=== PATIENT | male | born 1945 | race Caucasian/White ===

== ENCOUNTER 2016-12-23 09:18 | Outpatient (CLI) | payer MEDICARE, BC | END 2016-12-23 09:19 | disposition home or self-care (01) | DX: I10 Essential (primary) hypertension (principal) ==

== ENCOUNTER 2017-04-13 08:05 | Outpatient (CLI) | payer MEDICARE, BC ==
--- NOTE | 2017-04-14 14:02 | Ultrasound Report ---
CAROTID DUPLEX: 04/13/2017 CLINICAL INDICATION: Left facial numbness. TECHNIQUE: Real-time sonographic vascular imaging was performed by the gps navigation installer through the carotid arteries utilizing both color-flow and Doppler spectral analysis. Multiple franchise sales representative static images were saved for review. Vessel PSV cm/sec 2D Plaque Estimate % ICA/CCA PSV EDV cm/sec % Stenosis RCCA Prox 64 -- RCCA Dist 58 19 RECA 56 -- RT BULB 29 -- 0.50 11 ARCADIO Prox 46 -- 0.79 17 ARCADIO Mid 57 -- 0.98 26 ARCADIO Dist 41 -- 0.71 14 RVA 25 RVA flow direction: Antegrade. Vessel PSV cm/sec 2D Plaque Estimate % ICA/CCA PSV EDV cm/sec % Stenosis LCCA Prox 77 -- LCCA Dist 58 18 LECA 59 -- LFT BULB 42 -- 0.72 14 LICA Prox 45 -- 0.78 17 LICA Mid 54 -- 0.93 24 LICA Dist 61 -- 1.05 26 LVA 46 LVA flow direction: Antegrade. Velocity criteria are extrapolated from diameter data as defined by the Society of Radiologists in Ultrasound Consensus Conference Radiology 2003; 229; 340-346. Degree of Stenosis % ICA PSV cm/sec Plaque Estimate % ICA/CCA RSV Ratio ICA EDV cm/sec Normal < 125 None < 2.0 < 40 <50 < 125 < 50 < 2.0 < 40 50-69 125 - 130 >/= 50 2.0 - 4.0 40 - 100 >/= 70 but less than near occlusion > 230 >/= 50 > 4.0 > 100 Near occlusion High, low, or undetectable Visible lumen Variable Variable Total occlusion Undetectable No detectable lumen Not applicable Not applicable FINDINGS: RIGHT: There is minimal plaquing in the right carotid bifurcation, without evidence of a focal hemodynamically significant carotid stenosis. LEFT: There is minimal plaquing in the left carotid bifurcation, without evidence of a focal hemodynamically significant carotid stenosis. The vertebral arteries demonstrate antegrade flow bilaterally. IMPRESSION: NO EVIDENCE OF A FOCAL HEMODYNAMICALLY SIGNIFICANT CAROTID STENOSIS. MTDD
== END 2017-04-13 08:06 | disposition home or self-care (01) ==
LOC: DI 08:05
PROVIDERS: ATTEND Internal Medicine
DX: Z95.2 Presence of prosthetic heart valve (principal); I51.7 Cardiomegaly
CPT/HCPCS: 93306; 93880

== ENCOUNTER 2017-08-20 15:39 | Outpatient (CLI) | payer MEDICARE, BC | END 2017-08-20 15:40 | disposition critical access hospital (66) | LOC: EMS 15:39 | PROVIDERS: ATTEND Surgery | DX: S06.9X9A Unspecified intracranial injury with loss of consciousness of unspecified duration, initial encounter (principal); R41.82 Altered mental status, unspecified; W17.89XA Other fall from one level to another, initial encounter; Y93.H9 Activity, other involving exterior property and land maintenance, building and construction; Y92.008 Other place in unspecified non-institutional (private) residence as the place of occurrence of the external cause | CPT/HCPCS: A0425; A0427 ==

== ENCOUNTER 2017-08-20 15:52 | Emergency (ER) | payer MEDICARE, BC ==
[2017-08-20] MEDS ORDERED: SODIUM CHLORIDE 0.9% 1,000 ML IV ONE (16:05)
[2017-08-20] MEDS ORDERED: ceFAZolin 2 GM/50 ML 50 ML IV ONE ×2 (16:05→16:20)
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
[2017-08-20] MEDS ORDERED: IOPAMIDOL-300 100 ML VIAL ONE (16:15)
[2017-08-20 16:17] LABS: BASOPHILS # (AUTO) 0.1 10^3/uL (0.0-0.1); BASOPHILS % (AUTO) 0.9 %; EOSINOPHILS # (AUTO) 0.2 10^3/uL (0.0-0.7); EOSINOPHILS % (AUTO) 1.7 %; HCT - HEMATOCRIT 47.5 % (42.0-52.0); LYMPHOCYTES # (AUTO) 1.5 10^3/uL (1.5-3.5); LYMPHOCYTES % (AUTO) 14.3 %; MEAN CORPUSCULAR HEMOGLOBIN 31.3 pg (27.0-31.0); MEAN CORPUSCULAR HGB CONC 33.8 g/dL (32.0-36.0); MEAN CORPUSCULAR VOLUME 92.5 fL (80.0-94.0); MEAN PLATELET VOLUME 8.5 fL (7.4-11.4); MONOCYTES # (AUTO) 0.9 10^3/uL (0.0-1.0); MONOCYTES % (AUTO) 8.5 %; NEUTROPHILS # (AUTO) 7.9 10^3/uL (1.5-6.6); NEUTROPHILS % (AUTO) 74.6 %; NUCLEATED RED BLOOD CELLS AUTO 0.1 /100WBC; RED BLOOD COUNT 5.13 10^6/uL (4.70-6.10); RED CELL DISTRIBUTION WIDTH 14.2 % (12.0-15.0); UNCORRECTED WHITE BLOOD COUNT 10.5 x10^3/uL; WHITE BLOOD COUNT 10.5 x10^3/uL (4.8-10.8)
[2017-08-20] MEDS ORDERED: SODIUM CHLORIDE FLUSH 0.9% 10 ML SYRINGE IVP ONE (16:20)
[2017-08-20 16:30] LABS: ALBUMIN/GLOBULIN RATIO 1.6 (1.0-2.2); BILIRUBIN,TOTAL 1.6 mg/dL (0.2-1.0); CALCIUM 9.2 mg/dL (8.5-10.3); CREATININE 1.2 mg/dL (0.6-1.2); POTASSIUM 4.8 mmol/L (3.5-5.0); TOTAL PROTEIN 7.5 g/dL (6.7-8.2)
[2017-08-20] MEDS ORDERED: IOPAMIDOL-300 100 ML VIAL IVP ONE (16:40)
[2017-08-20 16:48] LABS: PT - PROTHROMBIN TIME 11.2 secs (9.9-12.6)
[2017-08-20] MEDS ORDERED: BUFFERED LIDOCAINE 10 ML SYRINGE ONE (16:51)
--- NOTE | 2017-08-20 17:08 | CT Preliminary Report ---
Exam: CT Head W/O IMPRESSION: 1. Soft tissue laceration along the left forehead with no underlying fracture identified. 2. The left globe appears intact. 3. No acute intracranial abnormality. [facility] SITE ID: [id number]
--- NOTE | 2017-08-20 17:10 | CT Report ---
EXAM: CT HEAD EXAM DATE: 08/20/2017 04:30 PM. CLINICAL HISTORY: Left forehead laceration. COMPARISON: None. TECHNIQUE: Multiaxial CT images were obtained from the foramen magnum to the vertex. IV contrast: Non e. Reformats: Coronal. In accordance with CT protocol optimization, one or more of the following dose reduction techniques w ere utilized for this exam: automated exposure control, adjustment of mA and/or KV based on patient s ize, or use of iterative reconstructive technique. FINDINGS: Parenchyma: No intraparenchymal hemorrhage. No evidence of mass, midline shift, or CT findings of inf arction. Clayton-white differentiation is distinct. Extraaxial Spaces: Normal for age. No subdural or epidural collections identified. Ventricles: Normal in size and position. Sinuses: Imaged paranasal sinuses, orbits, and mastoids show no significant abnormality. Bones: Question right nasal bone fracture. Other: Large laceration along the left forehead with no underlying bony fracture. The globe appears i ntact. IMPRESSION: 1. Soft tissue laceration along the left forehead with no underlying fracture identified. 2. The left globe appears intact. 3. No acute intracranial abnormality. [facility] Referring Provider Line: [phone] SITE ID: [id number]
--- NOTE | 2017-08-20 17:11 | CT Preliminary Report ---
Exam: CT Cervical Spine W/O IMPRESSION: 1. No acute cervical spine fracture or listhesis. 2. Multilevel degenerative changes, as above. [facility] SITE ID: [id number]
--- NOTE | 2017-08-20 17:13 | CT Report ---
EXAM: CT CERVICAL SPINE WITHOUT CONTRAST DATE: 08/20/2017 04:37 PM HISTORY: Fall from height, head injury. COMPARISONS: None. TECHNIQUE: Thin-section axial images were acquired of the cervical spine without contrast. Post-proce ssing: Coronal and sagittal reformats. Other: None. In accordance with CT protocol optimization, one or more of the following dose reduction techniques w ere utilized for this exam: automated exposure control, adjustment of mA and/or KV based on patient s ize, or use of iterative reconstructive technique. FINDINGS: Alignment: Normal. No scoliosis or spondylolisthesis. Bones: No fracture or bone lesion. Interspace Levels/Facets: C1-C2: Degenerative changes. C2-C3: Unremarkable. C3-C4: Uncal hypertrophy and facet arthrosis with mild bilateral neural foraminal narrowing. C4-C5: Unremarkable. C5-C6: Severe degenerative disk disease with uncal hypertrophy and moderate right neural foraminal na rrowing. C6-C7: Severe degenerative disk disease. C7-T1: Unremarkable. Musculature: Normal. No fatty atrophy. Other: The paravertebral and prevertebral soft tissues are normal. The lung apices are clear. IMPRESSION: 1. No acute cervical spine fracture or listhesis. 2. Multilevel degenerative changes, as above. [facility] Referring Provider Line: [phone] SITE ID: [id number]
--- NOTE | 2017-08-20 17:16 | CT Preliminary Report ---
Exam: CT Abdomen/Pelvis W/ IMPRESSION: 1. Axial, coronal and sagittal reconstructed images demonstrate no traumatic injury to the of the low er thoracic and lumbar spine. No pelvic fracture. 2. No solid organ injury in the abdomen or pelvis. 3. No evidence of bowel injury. [facility] SITE ID: [id number]
--- NOTE | 2017-08-20 17:19 | CT Report ---
EXAM: CT ABDOMEN AND PELVIS EXAM DATE: 08/20/2017 04:51 PM. CLINICAL HISTORY: Fall from height, head injury, IV only,. COMPARISONS: None. TECHNIQUE: Routine helical CT imaging was performed through the abdomen and pelvis. IV contrast: Amt/ type. Enteric contrast: No. Reconstructions: Coronal and sagittal. In accordance with CT protocol optimization, one or more of the following dose reduction techniques w ere utilized for this exam: automated exposure control, adjustment of mA and/or KV based on patient s ize, or use of iterative reconstructive technique. FINDINGS: Lung Bases: Unremarkable. Liver: Normal. No masses. Gallbladder/Bile Ducts: Unremarkable. Spleen: Normal. Pancreas: Normal. Adrenal Glands: Normal. Kidneys: Normal. No masses or hydronephrosis. Peritoneal Cavity/Bowel: Normal. No free fluid, free air or adenopathy. No masses or acute inflammato ry process. The appendix is well visualized and normal. Pelvic Organs: Normal. The bladder and visualized pelvic organs are within normal limits. Vasculature: Atherosclerotic disease of the abdominal aorta. Bones: Healed fractures of the left eighth, ninth, 10th and 11th ribs. Other: None. IMPRESSION: 1. Axial, coronal and sagittal reconstructed images demonstrate no traumatic injury to the of the low er thoracic and lumbar spine. No pelvic fracture. 2. No solid organ injury in the abdomen or pelvis. 3. No evidence of bowel injury. [facility] Referring Provider Line: [phone] SITE ID: [id number]
--- NOTE | 2017-08-20 17:26 | CT Report ---
EXAM: CT CHEST EXAM DATE: 08/20/2017 04:51 PM. CLINICAL HISTORY: Fall from height, head injury. Pain left side of body. COMPARISONS: Abdominal CT dated 08/20/2017. TECHNIQUE: Routine helical CT imaging was performed through the chest. IV contrast: None. Reconstruct ions: Coronal and sagittal. In accordance with CT protocol optimization, one or more of the following dose reduction techniques w ere utilized for this exam: automated exposure control, adjustment of mA and/or KV based on patient s ize, or use of iterative reconstructive technique. FINDINGS: Lungs/Pleura: There is a 4 mm pulmonary nodule in the right lung base (series 3, image 51). No focal consolidation, pleural effusion or pneumothorax. Mediastinum: The proximal ascending thoracic aorta is enlarged measuring up to 4.7 cm from the 2:00 t o 8 o'clock position on the axial plane at the level of the main pulmonary artery. No aortic dissecti on. No evidence of traumatic aortic injury. Bones: Old healed fractures of the left second, third, fourth, fifth, sixth, seventh, eighth, ninth, 10th and 11th ribs. Many of these fractures are markedly displaced. No acute rib fractures identified . Visualized Abdomen: Unremarkable. Other: Replaced aortic valve. Status post median sternotomy and CABG. IMPRESSION: 1. No traumatic aortic injury. 2. 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 3. No pneumothorax, focal consolidation or pleural effusion. 4. Axial, coronal and sagittal reconstructed images demonstrate no traumatic injury to the thoracic s pine. 5. Multiple old healed and old displaced rib fractures on the left. No acute fractures identified. [facility] Referring Provider Line: [phone] SITE ID: [id number]
--- NOTE | 2017-08-20 17:40 | XRAY Preliminary Report ---
Exam: XR Hip w/Pelvis 2-3V RT IMPRESSION: 1. Normal pelvis and hip radiography. 2. Lumbar spine degenerative disease. [facility] SITE ID: [id number]
--- NOTE | 2017-08-20 17:43 | XRAY Report ---
EXAM: RIGHT HIP AND PELVIS RADIOGRAPHY EXAM DATE: 08/20/2017 05:04 PM. HISTORY: Fall from height, hip inj. COMPARISONS: None. TECHNIQUE: 1 view of the pelvis and 1 view of the hip. FINDINGS: Bones: Normal. No fracture or bone lesion. Joints: The bilateral hip, pubis symphysis, and sacroiliac joints are preserved. Lower lumbar spine d egenerative disease. Soft Tissues: Normal. No soft tissue swelling. IMPRESSION: 1. Normal pelvis and hip radiography. 2. Lumbar spine degenerative disease. [facility] Referring Provider Line: [phone] SITE ID: [id number]
[2017-08-20] MEDS ORDERED: BACITRACIN OINT TOP ONE (18:09)
[2017-08-20 18:22] VITALS: BP 147/93
== END 2017-08-20 18:18 | disposition home or self-care (01) ==
LOC: EDUNIT# → ED 15:52
DX: S06.0X1A Concussion with loss of consciousness of 30 minutes or less, initial encounter (principal); S01.81XA Laceration without foreign body of other part of head, initial encounter; S19.9XXA Unspecified injury of neck, initial encounter; W11.XXXA Fall on and from ladder, initial encounter; Y93.H9 Activity, other involving exterior property and land maintenance, building and construction; Y92.017 Garden or yard in single-family (private) house as the place of occurrence of the external cause; Z95.2 Presence of prosthetic heart valve; R03.0 Elevated blood-pressure reading, without diagnosis of hypertension
CPT/HCPCS: 12032; 36415; 70450; 71260; 72125; 73502; 74177; 80053; 83690; 85025; 85610; 86850; 86900; 86901; 96374; 99283; 99284; A9270; J0690; Q9967

== ENCOUNTER 2017-09-07 09:36 | Outpatient (CLI) | payer MEDICARE, BC ==
--- NOTE | 2017-09-07 12:13 | MRI Report ---
EXAM: MRI BRAIN WITHOUT CONTRAST EXAM DATE: 09/07/2017 10:29 AM. CLINICAL HISTORY: Right leg weakness. Recent head trauma. Concussion syndrome. COMPARISON: No prior MRI. Brain CT correlation 08/20/2017. TECHNIQUE: Multiplanar, multisequence T1-weighted and fluid-sensitive MR sequences of the brain were performed. Sequences optimized for routine evaluation. Other: None. IV Contrast: None. FINDINGS: Brain Volume: Normal for age. Parenchyma/Dura: There are 6 or 7 tiny foci of fluid signal in the cerebellum that are consistent wit h very small old ischemic infarcts. Small chronic-appearing bilateral thalamic lacunar infarcts. No evidence for acute or recent cortical ischemic infarct. There is a cluster of small foci of abnormal white matter T2 hyperintensity with mild diffusion hyper intensity and also accompanying multinodular abnormal hypointensity on the gradient echo sequence in the left frontal lobe. These are nonspecific findings but can be associated with traumatic brain inju ry and suggest the possibility of axonal injury with microhemorrhage and developing posttraumatic gli osis or mild residual traumatic edema. Tiny single focus of deep white matter gradient echo hypointensity in the right frontal lobe. Single right lateral temporal lobe focus of susceptibility artifact on the gradient echo sequence. No midline shift or abnormal subdural fluid collection. Cerebral white matter appearance otherwise is within normal limits for age. A minimal amorphous periv entricular T2 hyperintense signal change is likely from chronic microangiopathy. Ventricles/Cisterns: No hydrocephalus. Sinuses: Minimal paranasal sinus mucosal thickening. Right maxillary retention cyst. Bones: No focal pathologic appearing marrow signal changes. Other: Loss of subcutaneous fat signal in the region of the left forehead where swelling and hematoma were seen previously on the prior CT. IMPRESSION: 1. Multiple foci of cerebral parenchymal signal abnormality including with punctate foci of gradient echo hypointensity, these are nonspecific findings but consistent with traumatic brain injury, most n otable in the region of the anterior left frontal lobe deep white matter. 2. 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 Referring Provider Line: [phone] SITE ID: [id number]
== END 2017-09-07 09:37 | disposition home or self-care (01) ==
LOC: DI 09:36
PROVIDERS: ATTEND Physician Assistant Medical
DX: R90.89 Other abnormal findings on diagnostic imaging of central nervous system (principal); Z86.73 Personal history of transient ischemic attack (TIA), and cerebral infarction without residual deficits
CPT/HCPCS: 70551

== ENCOUNTER 2018-06-05 09:35 | Outpatient (CLI) | payer MEDICARE, BC ==
[2018-06-05 17:53] LABS: BASOPHILS # (AUTO) 0.1 10^3/uL (0.0-0.1); EOSINOPHILS # (AUTO) 0.2 10^3/uL (0.0-0.7); EOSINOPHILS % (AUTO) 2.9 %; HGB - HEMOGLOBIN 15.4 g/dL (14.0-18.0); LYMPHOCYTES # (AUTO) 1.6 10^3/uL (1.5-3.5); LYMPHOCYTES % (AUTO) 30.6 %; MEAN CORPUSCULAR HGB CONC 33.6 g/dL (32.0-36.0); MEAN CORPUSCULAR VOLUME 95.1 fL (80.0-94.0); MEAN PLATELET VOLUME 8.6 fL (7.4-11.4); MONOCYTES # (AUTO) 0.6 10^3/uL (0.0-1.0); MONOCYTES % (AUTO) 11.1 %; NEUTROPHILS # (AUTO) 2.9 10^3/uL (1.5-6.6); NEUTROPHILS % (AUTO) 54.4 %; PLT - PLATELET COUNT 138 10^3/uL (130-450); RED BLOOD COUNT 4.81 10^6/uL (4.70-6.10); RED CELL DISTRIBUTION WIDTH 13.8 % (12.0-15.0); WHITE BLOOD COUNT 5.2 x10^3/uL (4.8-10.8)
[2018-06-05 18:11] LABS: ALBUMIN 4.4 g/dL (3.2-5.5); ALBUMIN/GLOBULIN RATIO 1.8 (1.0-2.2); ALKALINE PHOSPHATASE 59 IU/L (42-121); ALT ALANINE AMINOTRANSFERASE 24 IU/L (10-60); AST ASPARTATE AMINOTRANSFERASE 20 IU/L (10-42); BILIRUBIN,TOTAL 1.5 mg/dL (0.2-1.0); BUN - BLOOD UREA NITROGEN 18 mg/dL (6-20); CALCIUM 8.8 mg/dL (8.5-10.3); CARBON DIOXIDE - CO2 27 mmol/L (21-32); CHLORIDE 104 mmol/L (101-111); CHOL/HDL RATIO 2.6 (<5.0); CHOLESTEROL 169 mg/dL; GFR - MDRD 73 (>89); GLUCOSE 110 mg/dL (70-100); HDL CHOLESTEROL 66 mg/dL; LDL CHOLESTEROL,CALCULATED 94 mg/dL; LDL/HDL RATIO 1.4 (<3.6); SODIUM 137 mmol/L (135-145); TOTAL PROTEIN 6.9 g/dL (6.7-8.2); VLDL CHOLESTEROL 9 mg/dL
== END 2018-06-05 09:36 | disposition home or self-care (01) ==
LOC: LAB.F 09:35
PROVIDERS: ATTEND Physician Assistant Medical
DX: Z12.11 Encounter for screening for malignant neoplasm of colon (principal); E78.5 Hyperlipidemia, unspecified; R53.83 Other fatigue; F32.9 Major depressive disorder, single episode, unspecified; Z79.899 Other long term (current) drug therapy
CPT/HCPCS: 36415; 80053; 80061; 83721; 84443; 85025

== ENCOUNTER 2019-10-01 09:18 | Outpatient (CLI) | payer MEDICARE, BC ==
[2019-10-01 10:33] LABS: ALBUMIN 4.3 g/dL (3.2-5.5); ALBUMIN/GLOBULIN RATIO 1.4 (1.0-2.2); ALKALINE PHOSPHATASE 67 IU/L (42-121); ALT ALANINE AMINOTRANSFERASE 21 IU/L (10-60); AST ASPARTATE AMINOTRANSFERASE 16 IU/L (10-42); BILIRUBIN,TOTAL 1.1 mg/dL (0.2-1.0); BUN - BLOOD UREA NITROGEN 18 mg/dL (6-20); CARBON DIOXIDE - CO2 28 mmol/L (21-32); CHLORIDE 99 mmol/L (101-111); CHOLESTEROL 155 mg/dL; CREATININE 1.1 mg/dL (0.6-1.2); GFR - MDRD 65 (>89); GLUCOSE 105 mg/dL (70-100); HDL CHOLESTEROL 52 mg/dL; SODIUM 135 mmol/L (135-145); TOTAL PROTEIN 7.4 g/dL (6.7-8.2)
== END 2019-10-01 09:19 | disposition home or self-care (01) ==
LOC: LAB 09:18
PROVIDERS: ATTEND Internal Medicine
DX: I25.119 Atherosclerotic heart disease of native coronary artery with unspecified angina pectoris (principal); E78.5 Hyperlipidemia, unspecified
CPT/HCPCS: 36415; 80053; 80061; 83721

== ENCOUNTER 2020-01-07 15:50 | Outpatient (CLI) | payer MEDICARE, BC | END 2020-01-07 23:59 | disposition home or self-care (01) | LOC: LAB.R 15:50 | PROVIDERS: ATTEND Physician Assistant Medical | DX: N39.0 Urinary tract infection, site not specified (principal) | CPT/HCPCS: 87086 ==

== ENCOUNTER 2020-02-01 10:08 | Outpatient (CLI) | payer MEDICARE, BC ==
[2020-02-01 10:49] LABS: ALBUMIN 4.4 g/dL (3.2-5.5); CALCIUM 9.4 mg/dL (8.5-10.3); CREATININE 1.1 mg/dL (0.6-1.2); PHOSPHORUS 3.9 mg/dL (2.5-4.6)
== END 2020-02-01 10:09 | disposition home or self-care (01) ==
LOC: LAB 10:08
PROVIDERS: ATTEND Physician Assistant Medical
DX: N39.0 Urinary tract infection, site not specified (principal); N40.1 Benign prostatic hyperplasia with lower urinary tract symptoms
CPT/HCPCS: 36415; 80069

== ENCOUNTER 2020-11-04 08:00 | Outpatient (CLI) | payer MEDICARE, BC | END 2020-11-04 23:59 | disposition home or self-care (01) | LOC: LAB.R 08:00 | PROVIDERS: ATTEND Internal Medicine | DX: Z12.11 Encounter for screening for malignant neoplasm of colon (principal) | CPT/HCPCS: 82274 ==

== ENCOUNTER 2020-11-14 08:00 | Outpatient (CLI) | payer MEDICARE, BC | END 2020-11-14 23:59 | disposition home or self-care (01) | LOC: LAB.R 08:00 | PROVIDERS: ATTEND Internal Medicine | DX: R10.9 Unspecified abdominal pain (principal) | CPT/HCPCS: 81002 ==

== ENCOUNTER 2021-04-14 08:04 | Outpatient (CLI) | payer MEDICARE, BC ==
[2021-04-14 08:56] LABS: BASOPHILS # (AUTO) 0.1 10^3/uL (0.0-0.1); EOSINOPHILS # (AUTO) 0.2 10^3/uL (0.0-0.7); EOSINOPHILS % (AUTO) 3.4 %; HCT - HEMATOCRIT 45.8 % (42.0-52.0); HGB - HEMOGLOBIN 15.1 g/dL (14.0-18.0); LYMPHOCYTES # (AUTO) 1.3 10^3/uL (1.5-3.5); LYMPHOCYTES % (AUTO) 19.1 %; MEAN CORPUSCULAR VOLUME 90.9 fL (80.0-94.0); MEAN PLATELET VOLUME 9.7 fL (7.4-11.4); MONOCYTES # (AUTO) 0.7 10^3/uL (0.0-1.0); MONOCYTES % (AUTO) 10.3 %; NEUTROPHILS # (AUTO) 4.6 10^3/uL (1.5-6.6); NEUTROPHILS % (AUTO) 65.9 %; PLT - PLATELET COUNT 154 10^3/uL (130-450); RED BLOOD COUNT 5.04 10^6/uL (4.70-6.10)
[2021-04-14 09:14] LABS: ALBUMIN 4.1 g/dL (3.2-5.5); ALBUMIN/GLOBULIN RATIO 1.4 (1.0-2.2); ALKALINE PHOSPHATASE 59 IU/L (42-121); ALT ALANINE AMINOTRANSFERASE 20 IU/L (10-60); AST ASPARTATE AMINOTRANSFERASE 16 IU/L (10-42); BILIRUBIN,TOTAL 1.3 mg/dL (0.2-1.0); BUN - BLOOD UREA NITROGEN 17 mg/dL (6-20); CALCIUM 8.9 mg/dL (8.5-10.3); CARBON DIOXIDE - CO2 27 mmol/L (21-32); CHLORIDE 102 mmol/L (101-111); CHOL/HDL RATIO 3.1 (<5.0); CHOLESTEROL 165 mg/dL; CREATININE 1.1 mg/dL (0.6-1.2); GFR - MDRD 65 (>89); GLUCOSE 112 mg/dL (70-100); HDL CHOLESTEROL 54 mg/dL; LDL CHOLESTEROL,CALCULATED 102 mg/dL; LDL/HDL RATIO 1.9 (<3.6); POTASSIUM 4.8 mmol/L (3.5-5.0); SODIUM 136 mmol/L (135-145); TOTAL PROTEIN 7.1 g/dL (6.7-8.2); TRIGLYCERIDES 47 mg/dL; VLDL CHOLESTEROL 9 mg/dL
== END 2021-04-14 08:05 | disposition home or self-care (01) ==
LOC: LAB 08:04
PROVIDERS: ATTEND Internal Medicine
DX: I10 Essential (primary) hypertension (principal)
CPT/HCPCS: 36415; 80053; 80061; 83721; 85025

== ENCOUNTER 2021-04-16 17:20 | Outpatient (CLI) | payer MEDICARE, BC ==
--- NOTE | 2021-04-16 17:49 | XRAY Report ---
PROCEDURE: Knee 3 View LT INDICATIONS: LEFT KNEE PAIN ACUTE TECHNIQUE: 3 views of the left knee were acquired. COMPARISON: None. FINDINGS: Bones: No fractures or dislocations. There is mild joint space narrowing in the medial compartment. No suspicious bony lesions. Soft tissues: There is a large joint effusion. No suspicious soft tissue calcifications. IMPRESSION: 1. No fracture or dislocation. 2. Large joint effusion. Reviewed by: Benjamin Funes MD on 04/16/2021 5:48 PM PDT Approved by: Benjamin Funes MD on 04/16/2021 5:48 PM PDT Station ID: [id number]
== END 2021-04-16 23:59 | disposition home or self-care (01) ==
LOC: DI.S 17:20
PROVIDERS: ATTEND Physician Assistant Medical
DX: M25.462 Effusion, left knee (principal)

== ENCOUNTER 2021-04-27 19:45 | Outpatient (CLI) | payer MEDICARE, BC ==
[2021-04-27 16:02] LABS: BILIRUBIN,URINE NEGATIVE (NEGATIVE); GLUCOSE, URINE (UA) NEGATIVE (NEGATIVE); KETONES,URINE (UA) NEGATIVE (NEGATIVE); LEUKOCYTE ESTERASE, URINE MODERATE (NEGATIVE); NITRITE,URINE NEGATIVE (NEGATIVE); OCCULT BLOOD,URINE LARGE (NEGATIVE); PROTEIN,URINE 30 mg/dL (NEGATIVE); UROBILINOGEN,URINE 0.2 (NORMAL) E.U./dL (NORMAL)
[2021-04-27 16:16] LABS: BACTERIA,URINE None Seen /HPF (None Seen); CLARITY,URINE CLOUDY (CLEAR); SQUAMOUS EPITHELIAL CELL,UR RARE Squamous (<= Few); WBC,URINE >25 /HPF (0-3)
== END 2021-04-27 23:59 | disposition home or self-care (01) ==
LOC: LAB.S 19:45
PROVIDERS: ATTEND Physician Assistant Medical
DX: R31.9 Hematuria, unspecified (principal)
CPT/HCPCS: 81001; 87086; 87181

== ENCOUNTER 2021-04-29 15:48 | Outpatient (CLI) | payer MEDICARE, BC | END 2021-04-29 15:49 | disposition home or self-care (01) | LOC: LAB.S 15:48 | PROVIDERS: ATTEND Internal Medicine | DX: Z12.5 Encounter for screening for malignant neoplasm of prostate (principal) | CPT/HCPCS: 36415; G0103; 84153 ==

== ENCOUNTER 2021-05-11 15:00 | Outpatient (CLI) | payer MEDICARE, BC ==
[2021-05-11 20:21] LABS: BASOPHILS # (AUTO) 0.1 10^3/uL (0.0-0.1); BASOPHILS % (AUTO) 0.7 %; EOSINOPHILS # (AUTO) 0.2 10^3/uL (0.0-0.7); EOSINOPHILS % (AUTO) 2.1 %; HCT - HEMATOCRIT 44.7 % (42.0-52.0); HGB - HEMOGLOBIN 14.6 g/dL (14.0-18.0); LYMPHOCYTES # (AUTO) 1.4 10^3/uL (1.5-3.5); LYMPHOCYTES % (AUTO) 16.4 %; MEAN CORPUSCULAR HEMOGLOBIN 30.1 pg (27.0-31.0); MEAN CORPUSCULAR HGB CONC 32.7 g/dL (32.0-36.0); MEAN CORPUSCULAR VOLUME 92.2 fL (80.0-94.0); MEAN PLATELET VOLUME 10.4 fL (7.4-11.4); MONOCYTES # (AUTO) 0.7 10^3/uL (0.0-1.0); MONOCYTES % (AUTO) 7.9 %; NEUTROPHILS # (AUTO) 6.3 10^3/uL (1.5-6.6); NEUTROPHILS % (AUTO) 72.6 %; PLT - PLATELET COUNT 221 10^3/uL (130-450); RED BLOOD COUNT 4.85 10^6/uL (4.70-6.10); RED CELL DISTRIBUTION WIDTH 13.1 % (12.0-15.0); WHITE BLOOD COUNT 8.7 x10^3/uL (4.8-10.8)
[2021-05-11 20:23] LABS: BILIRUBIN,URINE NEGATIVE (NEGATIVE); GLUCOSE, URINE (UA) NEGATIVE (NEGATIVE); KETONES,URINE (UA) NEGATIVE (NEGATIVE); LEUKOCYTE ESTERASE, URINE NEGATIVE (NEGATIVE); NITRITE,URINE NEGATIVE (NEGATIVE); OCCULT BLOOD,URINE NEGATIVE (NEGATIVE); PROTEIN,URINE NEGATIVE (NEGATIVE); UROBILINOGEN,URINE 0.2 (NORMAL) E.U./dL (NORMAL)
[2021-05-11 20:36] LABS: CLARITY,URINE CLEAR (CLEAR); RBC,URINE None Seen /HPF (0-5)
[2021-05-11 20:37] LABS: BACTERIA,URINE None Seen /HPF (None Seen); SQUAMOUS EPITHELIAL CELL,UR NONE SEEN (<= Few)
== END 2021-05-11 15:01 | disposition home or self-care (01) ==
LOC: LAB.S 15:00
PROVIDERS: ATTEND Internal Medicine
DX: R31.9 Hematuria, unspecified (principal)
CPT/HCPCS: 36415; 81001; 85025; 87086

== ENCOUNTER 2021-06-02 14:03 | Outpatient (CLI) | payer MEDICARE, BC ==
[2021-06-02 17:24] LABS: THYROID STIMULATING HORMONE 0.82 uIU/mL (0.34-5.60)
== END 2021-06-02 14:04 | disposition home or self-care (01) ==
LOC: LAB.S 14:03
PROVIDERS: ATTEND Internal Medicine
DX: R53.83 Other fatigue (principal)
CPT/HCPCS: 36415; 84443

== ENCOUNTER 2021-06-16 10:23 | Outpatient (CLI) | payer MEDICARE, BC ==
[2021-06-16 15:11] LABS: HCT - HEMATOCRIT 46.5 % (42.0-52.0); HGB - HEMOGLOBIN 14.9 g/dL (14.0-18.0); MEAN CORPUSCULAR HEMOGLOBIN 29.9 pg (27.0-31.0); MEAN CORPUSCULAR VOLUME 93.2 fL (80.0-94.0); MEAN PLATELET VOLUME 10.6 fL (7.4-11.4); RED BLOOD COUNT 4.99 10^6/uL (4.70-6.10); RED CELL DISTRIBUTION WIDTH 13.7 % (12.0-15.0); WHITE BLOOD COUNT 6.7 x10^3/uL (4.8-10.8)
[2021-06-16 16:10] LABS: URIC ACID 7.4 mg/dL (2.6-7.2)
[2021-06-16 16:11] LABS: CRP - C-REACTIVE PROTEIN < 1.0 mg/dL (0-1.0)
[2021-06-16 17:42] LABS: RHEUMATOID FACTOR NEGATIVE (Negative)
[2021-06-18 16:46] LABS: DNA (DS) ANTIBODY 6 IU/mL
[2021-06-18 18:52] LABS: CYCLIC CITRULL PEPTIDE CCP IGG <16 UNITS
[2021-06-19 15:46] LABS: ANA SCREEN NEGATIVE (NEGATIVE)
== END 2021-06-16 10:24 | disposition home or self-care (01) ==
LOC: LAB.S 10:23
PROVIDERS: ATTEND Internal Medicine
DX: M25.50 Pain in unspecified joint (principal)
CPT/HCPCS: 36415; 84550; 85027; 85651; 86038; 86140; 86200; 86225; 86430

== ENCOUNTER 2021-06-25 08:00 | Outpatient (CLI) | payer MEDICARE, BC | END 2021-06-25 23:59 | disposition home or self-care (01) | LOC: LAB.S 08:00 | PROVIDERS: ATTEND Emergency Medicine | DX: R30.0 Dysuria (principal); N41.0 Acute prostatitis | CPT/HCPCS: 87086 ==

== ENCOUNTER 2021-08-19 07:13 | Outpatient (CLI) | payer MEDICARE, BC ==
[2021-08-19 14:29] LABS: ALBUMIN/GLOBULIN RATIO 1.3 (1.0-2.2); BILIRUBIN,TOTAL 0.9 mg/dL (0.2-1.0); URIC ACID 6.8 mg/dL (2.6-7.2)
== END 2021-08-19 07:14 | disposition home or self-care (01) ==
LOC: LAB.S 07:13
PROVIDERS: ATTEND Internal Medicine
DX: M25.50 Pain in unspecified joint (principal); M10.9 Gout, unspecified; I10 Essential (primary) hypertension
CPT/HCPCS: 36415; 80053; 84550

== ENCOUNTER 2021-12-02 12:08 | Outpatient (CLI) | payer MEDICARE, BC ==
[2021-12-02 12:41] LABS: BASOPHILS # (AUTO) 0.1 10^3/uL (0.0-0.1); BASOPHILS % (AUTO) 1.1 %; EOSINOPHILS # (AUTO) 0.4 10^3/uL (0.0-0.7); HCT - HEMATOCRIT 46.6 % (42.0-52.0); HGB - HEMOGLOBIN 15.3 g/dL (14.0-18.0); LYMPHOCYTES % (AUTO) 14.8 %; MEAN CORPUSCULAR HEMOGLOBIN 29.9 pg (27.0-31.0); MEAN CORPUSCULAR HGB CONC 32.8 g/dL (32.0-36.0); MEAN CORPUSCULAR VOLUME 91.2 fL (80.0-94.0); MEAN PLATELET VOLUME 10.1 fL (7.4-11.4); MONOCYTES # (AUTO) 0.7 10^3/uL (0.0-1.0); MONOCYTES % (AUTO) 9.7 %; NEUTROPHILS # (AUTO) 4.9 10^3/uL (1.5-6.6); NEUTROPHILS % (AUTO) 69.1 %; PLT - PLATELET COUNT 157 10^3/uL (130-450); RED BLOOD COUNT 5.11 10^6/uL (4.70-6.10); RED CELL DISTRIBUTION WIDTH 12.7 % (12.0-15.0)
[2021-12-02 12:55] LABS: ALBUMIN 4.3 g/dL (3.2-5.5); ALBUMIN/GLOBULIN RATIO 1.4 (1.0-2.2); BILIRUBIN,TOTAL 0.7 mg/dL (0.2-1.0); CALCIUM 9.3 mg/dL (8.5-10.3); CREATININE 1.2 mg/dL (0.6-1.2); MAGNESIUM 2.1 mg/dL (1.7-2.8); TOTAL PROTEIN 7.4 g/dL (6.7-8.2)
== END 2021-12-02 12:09 | disposition home or self-care (01) ==
LOC: LAB 12:08
PROVIDERS: ATTEND Urology
DX: N32.89 Other specified disorders of bladder (principal); C64.1 Malignant neoplasm of right kidney, except renal pelvis
CPT/HCPCS: 36415; 80048; 80053; 83735; 84443; 85025

== ENCOUNTER 2022-02-26 10:56 | Outpatient (CLI) | payer MEDICARE, BC ==
[2022-02-26 12:33] LABS: HCT - HEMATOCRIT 45.3 % (42.0-52.0); MEAN CORPUSCULAR HEMOGLOBIN 29.5 pg (27.0-31.0); MEAN CORPUSCULAR HGB CONC 33.1 g/dL (32.0-36.0); RED BLOOD COUNT 5.09 10^6/uL (4.70-6.10); RED CELL DISTRIBUTION WIDTH 13.2 % (12.0-15.0); WHITE BLOOD COUNT 5.6 x10^3/uL (4.8-10.8)
[2022-02-26 12:41] LABS: CALCIUM 9.1 mg/dL (8.5-10.3); CREATININE 1.1 mg/dL (0.6-1.2); POTASSIUM 4.3 mmol/L (3.5-5.0)
== END 2022-02-26 10:57 | disposition home or self-care (01) ==
LOC: LAB.S 10:56 → LAB 10:57
PROVIDERS: ATTEND Urology
DX: N32.89 Other specified disorders of bladder (principal)
CPT/HCPCS: 36415; 80048; 85027; 93005

== ENCOUNTER 2023-09-13 09:49 | Outpatient (CLI) | payer MEDICARE, BC ==
[2023-09-13 16:37] LABS: CHOL/HDL RATIO 2.3 (<5.0); CHOLESTEROL 167 mg/dL; HDL CHOLESTEROL 73 mg/dL; LDL CHOLESTEROL,CALCULATED 83 mg/dL; LDL/HDL RATIO 1.1 (<3.6); TRIGLYCERIDES 57 mg/dL (48-352); VLDL CHOLESTEROL 11 mg/dL
== END 2023-09-13 09:50 | disposition home or self-care (01) ==
LOC: LAB.S 09:49
PROVIDERS: ATTEND Internal Medicine
DX: I25.119 Atherosclerotic heart disease of native coronary artery with unspecified angina pectoris (principal); E78.5 Hyperlipidemia, unspecified
CPT/HCPCS: 36415; 80061; 83721

== ENCOUNTER 2023-09-23 10:53 | Outpatient (CLI) | payer MEDICARE, BC ==
[2023-09-23 15:36] LABS: HCT - HEMATOCRIT 46.7 % (42.0-52.0); HGB - HEMOGLOBIN 15.3 g/dL (14.0-18.0); MEAN CORPUSCULAR HEMOGLOBIN 30.3 pg (27.0-31.0); MEAN CORPUSCULAR HGB CONC 32.8 g/dL (32.0-36.0); MEAN CORPUSCULAR VOLUME 92.5 fL (80.0-94.0); MEAN PLATELET VOLUME 10.9 fL (7.4-11.4); RED BLOOD COUNT 5.05 10^6/uL (4.70-6.10); RED CELL DISTRIBUTION WIDTH 13.1 % (12.0-15.0); WHITE BLOOD COUNT 5.7 x10^3/uL (4.8-10.8)
[2023-09-23 16:09] LABS: THYROID STIMULATING HORMONE 0.97 uIU/mL (0.34-5.60)
[2023-09-23 16:40] LABS: ALBUMIN 4.4 g/dL (3.2-5.5); ALBUMIN/GLOBULIN RATIO 1.7 (1.0-2.2); BILIRUBIN,TOTAL 1.1 mg/dL (0.2-1.0); CALCIUM 9.4 mg/dL (8.5-10.3); POTASSIUM 4.7 mmol/L (3.5-4.5)
== END 2023-09-23 10:54 | disposition home or self-care (01) ==
LOC: LAB.S 10:53
PROVIDERS: ATTEND Internal Medicine
DX: R53.83 Other fatigue (principal)
CPT/HCPCS: 36415; 80053; 84443; 85027

== ENCOUNTER 2023-10-28 09:30 | Outpatient (CLI) | payer MEDICARE, BC | END 2023-10-28 09:31 | disposition home or self-care (01) | LOC: LAB.S 09:30 | PROVIDERS: ATTEND Internal Medicine | DX: R53.83 Other fatigue (principal) | CPT/HCPCS: 82306 ==

== ENCOUNTER 2023-11-15 07:00 | Outpatient (CLI) | payer MEDICARE, BC ==
--- NOTE | 2023-11-16 13:58 | XRAY Report ---
PROCEDURE: Hip w/Pelvis 2-3V RT INDICATIONS: RIGHT HIP PAIN TECHNIQUE: AP pelvis with lateral view(s) of the right hip(s). COMPARISON: None. FINDINGS: Bones: No fractures or dislocations. No suspicious bony lesions. There is severe right hip joint de generation. There is bony prominence at the right femoral head and neck junction, suggesting CAM impi ngement. There is mild left hip and bilateral sacroiliac joint degeneration. Moderate degenerative disc dise ase in the lower lumbar spine. Soft tissues: No suspicious soft tissue calcifications or masses. IMPRESSION: 1. Severe right hip joint degeneration. Suspect tendon impingement. Reviewed by: Darrel Espinoza MD on 11/16/2023 1:57 PM PST Approved by: Darrel Espinoza MD on 11/16/2023 1:57 PM PST Station ID: [id number]
== END 2023-11-15 23:59 | disposition home or self-care (01) ==
LOC: DI.S 07:00
PROVIDERS: ATTEND Physician Assistant
DX: M16.11 Unilateral primary osteoarthritis, right hip (principal)

== ENCOUNTER 2024-02-22 08:35 | Outpatient (CLI) | payer MEDICARE, BC ==
--- NOTE | 2024-02-22 11:11 | XRAY Report ---
PROCEDURE: Shoulder 2+V LT INDICATIONS: LEFT SHOULDER PAIN TECHNIQUE: 3 views of the shoulder were acquired. COMPARISON: None. FINDINGS: Bones: No acute fracture or subluxation is seen. Destruction of the glenohumeral joint space is seen . Osteophytes and subchondral sclerosis indicating severe DJD noted.Old, healed left rib fractures. Soft tissues: Partially visualized medial sternotomy wires, surgical clips projecting over the heart . IMPRESSION: Severe DJD of the left shoulder Reviewed by: Chidi Mayen MD on 02/22/2024 11:10 AM PDT Approved by: Chidi Mayen MD on 02/22/2024 11:10 AM PDT Station ID: [id number]
== END 2024-02-22 08:36 | disposition home or self-care (01) ==
LOC: DI.S 08:35
PROVIDERS: ATTEND Registered Nurse
DX: M19.012 Primary osteoarthritis, left shoulder (principal)

== ENCOUNTER 2024-03-01 14:55 | Outpatient (CLI) | payer MEDICARE, BC ==
--- NOTE | 2024-03-01 16:09 | Sleep Patient Instructions ---
Sleep Center Visit Summary - Patient Visit Information Reason for Visit: Initial consult for evaluation of sleep disordered breathing and other sleep issues. - Patient Instructions Instructions Attached: Sleep Study Additional Instructions: You will be completing a sleep study, either an in-lab polysomnography (PSG) or home sleep study (HST). You will follow-up in the sleep care office after the sleep study is completed to hear the results and talk about therapy, if needed. You will be called by our office staff to schedule this appointment, but you may contact us with any questions. - Clinic Information Contact: [facility] [address] [place] [address] [email or web address] T: [phone]
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
[2024-03-01 16:21] VITALS: BP 151/87; O2SAT 99
== END 2024-03-01 14:56 | disposition home or self-care (01) ==
LOC: SC 14:55
PROVIDERS: ATTEND Nurse Practitioner Family
DX: R06.83 Snoring (principal); G47.8 Other sleep disorders
CPT/HCPCS: 99203; G0463; 99212

== ENCOUNTER 2024-03-21 18:57 | Outpatient (CLI) | payer MEDICARE, BC | END 2024-03-21 18:58 | disposition home or self-care (01) | LOC: SC 18:57 | PROVIDERS: ATTEND Nurse Practitioner Family | DX: G47.33 Obstructive sleep apnea (adult) (pediatric) (principal); G47.61 Periodic limb movement disorder | CPT/HCPCS: 95810 ==

== ENCOUNTER 2024-03-28 11:26 | Outpatient (CLI) | payer MEDICARE, BC ==
--- NOTE | 2024-03-28 12:30 | Sleep Patient Instructions ---
Sleep Center Visit Summary - Patient Visit Information Reason for Visit: Sleep study follow-up - Patient Instructions Instructions Attached: CPAP Additional Instructions: You are being started on CPAP therapy with pressure setting at 4-15 cmH2O. You w ill need to call the sleep care office to set up your follow up once you have your CPAP machine to check compliance and response to therapy at that time. You may call the office with any concerns about pressure feeling too low or too much for adjustment, if needed. You should contact DME supplier for any questions or concerns about mask or equipment. Please call office to schedule a follow up appointment in the sleep care office one month after obtaining new device. - Clinic Information Contact: [facility] [address] [place] [address] [email or web address] T: [phone]
--- NOTE | 2024-03-28 12:40 | SLEEP CARE CONSULTATION ---
Information from patient questionnaire entered by Corinne Rondon. I have reviewed and concur with the information entered by Corinne Rondon. This document represents the service I personally performed and the decisions made by me, Erica Golden ARNP. History of Present Illness Service Date and Time: 03/28/2024 1126 Accompanied by: Spouse Initial [place] Sleepiness Scale score: 4 (03/01/24) Current [place] Sleepiness Scale score: 2 (03/28/24) Additional HPI information: VIKAS HALL returns with spouse for follow up and results of the recently performed polysomnography. The sleep study showed very severe obstructive sleep apnea with an average AHI of 68.9 and charles oxygen saturation of 80%. He had mild PLMs not contributing to sleep fragmentation. I explained the pathophysiology behind obstructive sleep apnea. We then spent quite a bit of time discussing different treatment options. For mild obstructive sleep apnea, surgery and oral appliance are alternatives to nasal CPAP therapy but in moderate or severe cases, nasal CPAP is the most effective and reliable treatment. I reviewed the impact of weight changes on sleep apnea and strongly recommended losing weight. After some discussion, the patient opted to go with the nasal CPAP therapy. Nasal autoCPAP set at 4-15 cmH20 will be ordered with rationale explained. A manual titration study will be ordered if unable to find optimal pressure with office adjustments. I explained how CPAP machine works and what to expect when using the machine. Using CPAP every night in order to get used to it was emphasized. Patient advised to put CPAP mask on before getting into bed so as not to fall asleep without CPAP. To assist acclimation to CPAP use, it could also be used for a short time during day while reading or watching TV. The patient was instructed to call the CPAP supplier to discuss any mechanical problem that may occur. If the mask given is uncomfortable or is difficult to keep on through the night even with adjustment, contact the CPAP supplier as many will replace with another mask style if notified before 30 days. If snoring or perceives is not getting enough air or too much air from the machine, notify this office. [Patient counseled not drink alcohol less than 4 hours before bedtime as it can increase snoring and apnea. ][Patient does not drink alcohol. ] Patient was cautioned about risks of drowsy driving until sleepiness symptoms resolve. [Patient denies drowsy driving. ][AASM patient education on snoring and sleep apnea given and reviewed.] Sleep Study - Results Type of Sleep Study: Polysomnography (COMPLETED 03/21/24) Prior sleep studies: No Polysomnography/Home Sleep Study results: IMPRESSION: The quality of the study is good. The patient had reduced sleep efficiency due to prolonged awakening in the middle of the night and regulatory compliance director awakening.. The sleep architecture was abnormal for sleep fragmentation and lack of slow wave sleep (N3). Respiratory monitoring showed severe obstructive sleep apneahypopnea (AHI = 68.9) associated with frequent arousals, oxyhemoglobin desaturation and mild hypoxia (charles oxygen saturation of 80%). Baseline oxygen saturation was normal. The respiratory events occurred independently of sleep stage and body position (supine AHI = 66.9; non-supine = 70.31). Snore was light to loud in intensity. There was mild periodic leg movement of sleep, not contributing to the sleep fragmentation. Cardiac rhythm was normal sinus rhythm without significant arrhythmia. No abnormal behavior (parasomnia) observed during the night. Allergies and Home Medications Known drug allergies: Yes (morphine) Drug allergies reviewed: Yes Home medication list reviewed: Yes (no changes) Allergy and home medication list: Allergies morphine Allergy (Verified 03/26/24 11:21) Review of Systems Review of systems same as previous: Yes (AORTIC VALVE REPLACED in 2006) Physical Exam Vital signs obtained and entered by: CORINNE Carranza MA Blood Pressure: 158/87 (RIGHT ARM) Cuff size: long Heart Rate: 48 O2 Saturation: 97 Height: 5 ft 9.5 in Weight: 204 lb 9.6 oz Body Mass Index: 29.7 BMI Classification: Overweight Impression and Plan 1. Obstructive Sleep Apnea-Hypopnea Syndrome, very severe, with lowest oxygen saturation of 80%. Obviously this is the cause of the patients symptoms of unrefreshed sleep, and excessive daytime sleepiness. Positive pressure therapy could benefit hypertension, coronary heart disease and anxiety. As mentioned above, the patient will be started on nasal autoCPAP therapy with pressure set at 4-15 cmH2O. A manual titration study will be completed if unable to find optimal treatment pressure with office adjustments. Compliance guidelines also reviewed. A copy of compliance guidelines will be given for reference at check out. 2. Hypoxemia, mild, with a charles oxygen saturation of 80% and 9.1 minutes spent under 90%. The baseline oxygen saturation was normal with an average oxygen saturation of 95%. 3. Overweight, unspecified. Currently patients BMI is 29.7. Obesity increases the risk of apnea, CPAP pressure requirements and overall health risks especially cardiovascular and diabetes. Thus patient is advised to lose weight. 4. Periodic limb movement, mild, that did not fragment patients sleep. Periodic limb movement of sleep (PLMS) is characterized by episodes of repetitive limb movements that occur during sleep and usually involve the lower limbs. The etiology is unknown. Sleep hygiene methods can also improve sleep as well as lifestyle changes such as regular exercise. Patient was advised that no treatment is needed at this time. If symptoms increase, then further evaluation is indicated. * Nasal auto CPAP therapy, pressure at 4-15 cm H2O. * Attempt to lose weight. * Avoid alcohol consumption near bedtime. * Avoid supine sleep until using CPAP. * The patient is again cautioned about driving until sleepiness completely resolves. * Return one month after CPAP obtained. I will assess response to therapy and compliance at that time. Counseling Topics: Weight loss health impact Prescriptions: Auto CPAP Plan: compliance followup for PAP therapy Visit Type: In Office Time Spent with Patient (minutes): 31 Provider Statement: I spent 100% of the Face to Face Visit with the patient with greater than 50% spent counseling the patient and coordination of care.
[2024-03-28 12:43] VITALS: BP 158/87; O2SAT 97
== END 2024-03-28 11:27 | disposition home or self-care (01) ==
LOC: SC 11:26
PROVIDERS: ATTEND Nurse Practitioner Family
DX: G47.33 Obstructive sleep apnea (adult) (pediatric) (principal); R09.02 Hypoxemia; G47.61 Periodic limb movement disorder; E66.3 Overweight; Z68.29 Body mass index [BMI] 29.0-29.9, adult
CPT/HCPCS: 99214; G0463; 99212

== ENCOUNTER 2024-05-23 09:28 | Outpatient (CLI) | payer MEDICARE, BC ==
--- NOTE | 2024-05-23 10:12 | Sleep Patient Instructions ---
Sleep Center Visit Summary - Patient Visit Information Reason for Visit: First compliance follow-up - Patient Instructions Additional Instructions: You were here for follow up of CPAP therapy. You will be continued on CPAP therapy with pressure at 8-12 cmH2O. Please let us know if the pressure change is uncomfortable and we can make further adjustments of the pressure. You should follow up with sleep care in 1-2 months. You may contact us sooner for any questions or concerns. - Clinic Information Contact: [facility] [address] [place] [address] [email or web address] T: [phone]
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
[2024-05-23 10:20] VITALS: BP 168/83; O2SAT 98
== END 2024-05-23 09:29 | disposition home or self-care (01) ==
LOC: SC 09:28
PROVIDERS: ATTEND Nurse Practitioner Family
DX: G47.33 Obstructive sleep apnea (adult) (pediatric) (principal); E66.9 Obesity, unspecified; Z68.30 Body mass index [BMI] 30.0-30.9, adult
CPT/HCPCS: 99213; G0463; 99212

== ENCOUNTER 2024-07-20 14:31 | Outpatient (CLI) | payer MEDICARE, BC ==
--- NOTE | 2024-07-20 16:56 | XRAY Report ---
PROCEDURE: Shoulder 2+V RT INDICATIONS: RIGHT SHOULDER PAIN TECHNIQUE: 3 views of the shoulder were acquired. COMPARISON: Contralateral left shoulder dated 02/22/2024. FINDINGS: Bones: No fractures or dislocations. No suspicious bony lesions. Advanced degenerative arthritis of the right glenohumeral joint with prominent osteophytes and humeral joint joint space obliteration. Visualized ribs appear intact. Soft tissues: No suspicious soft tissue calcifications. The visualized lungs are within normal limi ts. IMPRESSION: Advanced glenohumeral joint degenerative arthritis. Reviewed by: Rodolfo Murillo MD on 07/20/2024 4:54 PM PDT Approved by: Rodolfo Murillo MD on 07/20/2024 4:54 PM PDT Station ID: [id number]
== END 2024-07-20 14:32 | disposition home or self-care (01) ==
LOC: DI 14:31
PROVIDERS: ATTEND Physician Assistant Surgical
DX: M19.011 Primary osteoarthritis, right shoulder (principal)

== ENCOUNTER 2024-07-25 12:16 | Outpatient (CLI) | payer MEDICARE, BC ==
--- NOTE | 2024-07-25 13:19 | Sleep Patient Instructions ---
Sleep Center Visit Summary - Patient Visit Information Reason for Visit: 2-month follow-up for PAP therapy - Patient Instructions Additional Instructions: You were here for follow up of CPAP therapy. You will be continued on CPAP therapy with pressure at 8-12 cmH2O. You should follow up with sleep care in 3 months. You may contact us sooner for any questions or concerns. - Clinic Information Contact: [facility] [address] [place] [id number] [email or web address] T: [phone]
--- NOTE | 2024-07-25 13:23 | SLEEP CARE CONSULTATION ---
Information from patient questionnaire entered by Alex Jin. I have reviewed and concur with the information entered by Alex Jin. This document represents the service I personally performed and the decisions made by , Erica Golden ARNP. History of Present Illness Service Date and Time: 07/25/2024 1216 Previous diagnosis: Very Severe, Obstructive Sleep Apnea-Hypopnea Syndrome AHI: 68.9 (on 03/21/24) Reason for follow up: other (2-Month F/U pressure change) Equipment type: CPAP (RESMED Airsense 11, S/U 03/2024) Equipment obtained from: Other ([facility]; getting supplies) Mask style: Nasal pillows Backup mask available: Yes Last cushion change: 1 week Prior sleep studies: No Year and Where: 2023 [facility] Type of Sleep Study: Polysomnography (COMPLETED 03/21/24) HPI additional information: VIKAS HALL was diagnosed to have very severe, AHI 68.9, obstructive sleep apnea-hypopnea syndrome and returned today for CPAP therapy 2 month after pressure change follow-up. Sleep Study - Results Type of Sleep Study: Polysomnography (COMPLETED 03/21/24) Prior sleep studies: No CPAP Compliance Data - Data Reviewed with Patient Average duration of nightly device use: 8 h 53 min Compliance rate %: 97 (05/25/24-07/23/24; 60/60 days used) Current pressure setting (cmH2O): 8-12 (median 9.5, avg 11, max 11.6) Average residual AHI: 3.7 Central apnea: 2.1 Obstructive apnea: 0.3 Hypopnea: 1.2 Average large leak: 1.9 L/min Subjective Patient concerns: reports: other (Recently noticed more events per hour). denies: aerophagia, mask discomfort, air blowing in eyes, mask leak noise, condensation in mask/hose, nasal congestion, dry mouth, nose, throat, epistaxis Observed to snore while using device: No Current pressure setting perceived as: comfortable On therapy, patient: reports: other (still waking up feeling tired but feels it is related to his heart valve). denies: drowsiness while driving Initial [place] Sleepiness Scale score: 4 (03/01/24) Current [place] Sleepiness Scale score: 2 (07/22/24) Allergies and Home Medications Known drug allergies: Yes (as listed) Drug allergies reviewed: Yes Home medication list reviewed: Yes (no changes) Allergy and home medication list: Allergies morphine Allergy Review of Systems Review of systems same as previous: Yes (replace aortic valve soon) Physical Exam Vital signs obtained and entered by: Erica Oneill NP Blood Pressure: 127/73 Cuff size: long (right) Heart Rate: 56 O2 Saturation: 98 Height: 5 ft 9.5 in Weight: 206 lb 9.6 oz Body Mass Index: 30.0 BMI Classification: Obese Impression and Plan 1. Obstructive Sleep Apnea-Hypopnea Syndrome, very severe, with good treatment compliance and good apnea control. Patient has been faithfully using his CPAP on a nightly basis. He still does not wake up feeling rested in the mornings. He thinks it has to do with his heart valve that needs to be replaced. 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 His had a heart attack and had to have 2 heart stents placed, so he has been under a lot of stress in the last few weeks. He has significant improvement of sleep apnea and therapy looks sufficient at this time. Patient's apnea severity and rationale for treatment to reduce apnea, improve sleep quality and reduce cardiovascular and cerebrovascular events was reviewed. I also reviewed the benefit of consistent device use of CPAP for hypertension, cardiac disease (CHD), anxiety. 2. Obesity, unspecified. Currently patients BMI is 30. Obesity increases the risk of apnea, CPAP pressure requirements and overall health risks especially cardiovascular and diabetes. Thus patient is advised to lose weight. * Continue auto CPAP pressure at 8-12 cmH2O * Notify me if snoring with mask or feeling that the pressure is too much or too little * Attempt to lose weight * Call this office if any problems using CPAP * Return for follow up in 6 months, or sooner if concerns arise Counseling Topics: Spare mask, Weight loss health impact Follow up with Sleep Care in: 6 months Visit Type: In Office Time Spent with Patient (minutes): 25 Provider Statement: I spent 100% of the Face to Face Visit with the patient with greater than 50% spent counseling the patient and coordination of care.
[2024-07-25 13:29] VITALS: BP 127/73; O2SAT 98
== END 2024-07-25 12:17 | disposition home or self-care (01) ==
LOC: SC 12:16
PROVIDERS: ATTEND Nurse Practitioner Family
DX: G47.33 Obstructive sleep apnea (adult) (pediatric) (principal); E66.9 Obesity, unspecified; Z68.30 Body mass index [BMI] 30.0-30.9, adult
CPT/HCPCS: 99213; G0463; 99212

== ENCOUNTER 2024-07-31 15:06 | Outpatient (CLI) | payer MEDICARE, BC ==
[2024-07-31 15:16] LABS: BASOPHILS # (AUTO) 0.1 10^3/uL (0.0-0.1); BASOPHILS % (AUTO) 0.7 %; EOSINOPHILS # (AUTO) 0.2 10^3/uL (0.0-0.7); EOSINOPHILS % (AUTO) 2.2 %; HGB - HEMOGLOBIN 15.4 g/dL (14.0-18.0); LYMPHOCYTES # (AUTO) 1.4 10^3/uL (1.5-3.5); LYMPHOCYTES % (AUTO) 15.2 %; MEAN CORPUSCULAR HGB CONC 32.8 g/dL (32.0-36.0); MEAN CORPUSCULAR VOLUME 94.6 fL (80.0-94.0); MEAN PLATELET VOLUME 9.8 fL (7.4-11.4); MONOCYTES # (AUTO) 0.8 10^3/uL (0.0-1.0); MONOCYTES % (AUTO) 9.3 %; NEUTROPHILS # (AUTO) 6.5 10^3/uL (1.5-6.6); PLT - PLATELET COUNT 151 10^3/uL (130-450); RED BLOOD COUNT 4.97 10^6/uL (4.70-6.10); RED CELL DISTRIBUTION WIDTH 12.9 % (12.0-15.0)
[2024-07-31 15:26] LABS: INR 1.1 (0.8-1.2); PT - PROTHROMBIN TIME 11.5 secs (9.9-12.6)
[2024-07-31 15:50] LABS: CALCIUM 9.4 mg/dL (8.5-10.3); CREATININE 1.1 mg/dL (0.6-1.3); POTASSIUM 4.7 mmol/L (3.5-4.5)
== END 2024-07-31 15:07 | disposition home or self-care (01) ==
LOC: LAB 15:06
PROVIDERS: ATTEND Specialist
DX: I35.0 Nonrheumatic aortic (valve) stenosis (principal)
CPT/HCPCS: 36415; 80048; 85025; 85610